=== PATIENT | male | born 2000 | race Two or more races ===

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

== ENCOUNTER 2022-05-27 17:42 | Emergency (ER) | payer OTHER ==
[~2022-05-27] VITALS: Ht 152.4 cm; Wt 72.6 kg
[~2022-05-27 17:42] MED LIST changes: +PROAIR RESPICL90 MCG; +ROBITUSSIN30 MG/5 ML
== END 2022-05-27 20:54 | disposition home or self-care (01) ==
LOC: EMR PED 17:42
DX: S00.83XA Contusion of other part of head, initial encounter (principal); W50.0XXA Accidental hit or strike by another person, initial encounter; Y92.838 Other recreation area as the place of occurrence of the external cause; F84.5 Asperger's syndrome; Y93.67 Activity, basketball

== ENCOUNTER → 2022-08-20 | Emergency (ER) | payer OTHER ==
[~2022-08-20] VITALS: Ht 180.3 cm; Wt 74.4 kg
== END | disposition left against medical advice (07) ==
LOC: ER → EMR PED 23:49
DX: Z53.21 Procedure and treatment not carried out due to patient leaving prior to being seen by health care provider (principal)

== ENCOUNTER 2023-12-06 16:29 | Emergency (ER) | payer OTHER ==
[~2023-12-06] VITALS: Ht 180.3 cm; Wt 74.8 kg
[2023-12-06] MEDS ORDERED: DEXAMETHASONE SODIUM PHOSPHATE 4 MG/ML VIAL IM ONE (17:30)
[2023-12-06] MEDS ORDERED: AZITHROMYCIN 500 MG TABLET PO ONE ×2 (17:30→17:32)
[2023-12-06] MEDS ORDERED: GUAIFENESIN/DEXTROMETHORPHAN 10ML BLIST.PACK PO ONE ×2 (17:30→17:32)
[2023-12-06] MEDS ORDERED: DEXAMETHASONE SODIUM PHOSPHATE 4 MG/ML VIAL ONE (17:32)
[2023-12-06 17:52] LABS: HEMOGLOBIN 15.2 g/dL (13-16.00); MEAN CELL VOLUME 86.7 fL (80.0-100.00); MEAN CORPUSCULAR HEMOGLOBIN 29.9 pg (27.00-32.0); MEAN CORPUSCULAR HGB CONC 34.5 g/dl (32.0-36.0); PLATELET COUNT 244 K/uL (150-450); RED BLOOD COUNT 5.07 M/uL (4.00-6.00); RED CELL DISTRIBUTION WIDTH 13.5 % (11.5-14.5)
[2023-12-06] MEDS ORDERED: ZITHROMAX500 MG PO (18:33)
[2023-12-06] MEDS ORDERED: TUSNEL LIQUID178 ML PO (18:33)
[2023-12-06] MEDS ORDERED: ZYRTEC10 M3 PO (18:34)
== END 2023-12-06 18:36 | disposition home or self-care (01) ==
LOC: ER 16:31
PROVIDERS: General Practice
DX: R53.81 Other malaise (principal); J06.9 Acute upper respiratory infection, unspecified; Z20.822 Contact with and (suspected) exposure to COVID-19

== ENCOUNTER 2024-02-05 20:28 | Emergency (ER) | payer OTHER ==
[~2024-02-05] VITALS: Ht 152.4 cm; Wt 76.2 kg
[~2024-02-05 20:28] MED LIST changes: +TUSNEL LIQUID178 ML PO; +ZITHROMAX500 MG PO; +ZYRTEC10 M3 PO
[2024-02-06] MEDS ORDERED: ACETAMINOPHEN 500 MG GEL..CAP PO STA (00:55)
[2024-02-06] MEDS ORDERED: GUAIFENESIN 200 MG/10 ML BLIST.PACK PO STA (00:55)
[2024-02-06] MEDS ORDERED: DIPHENHYDRAMINE HCL 12.5 MG/5 ML BLIST.PACK PO STA (00:55)
[2024-02-06 01:14] LABS: HEMATOCRIT 45.2 % (39.0-48.0); HEMOGLOBIN 15.2 g/dL (13-16.00); MEAN CELL VOLUME 88.2 fL (80.0-100.00); MEAN CORPUSCULAR HEMOGLOBIN 29.6 pg (27.00-32.0); MEAN CORPUSCULAR HGB CONC 33.6 g/dl (32.0-36.0); PLATELET COUNT 279 K/uL (150-450); RED BLOOD COUNT 5.13 M/uL (4.00-6.00); RED CELL DISTRIBUTION WIDTH 13.1 % (11.5-14.5)
[2024-02-06] MEDS ORDERED: PHENAGIL TABLE1 EACH PO (04:48)
[2024-02-06] MEDS ORDERED: DOLOGESIC-DF 51 EACH PO (04:48)
[2024-02-06] MEDS ORDERED: ZYNCOF 20-400120 ML PO ×2 (04:49)
== END 2024-02-06 05:11 ==
LOC: ER 20:30
PROVIDERS: General Practice
DX: J06.9 Acute upper respiratory infection, unspecified (principal); Z20.822 Contact with and (suspected) exposure to COVID-19

== ENCOUNTER 2024-12-01 22:05 | Emergency (ER) | payer OTHER ==
[~2024-12-01] VITALS: Ht 177.8 cm; Wt 78.9 kg
[~2024-12-01 22:05] MED LIST changes: +DOLOGESIC-DF 51 EACH PO; +PHENAGIL TABLE1 EACH PO; +ZYNCOF 20-400120 ML PO
[2024-12-01] MEDS ORDERED: MONDOXYNE NL100 MG PO (22:29)
[2024-12-01] MEDS ORDERED: FAMOtidine 10 MG/ML (4ML VIAL) IV ONE (23:15)
[2024-12-01] MEDS ORDERED: METHYLPREDNISOLONE SOD SUCC 125 MG VIAL IV ONE (23:15)
== END 2024-12-02 00:40 | disposition home or self-care (01) ==
LOC: ER 22:10
DX: R21 Rash and other nonspecific skin eruption (principal); K12.30 Oral mucositis (ulcerative), unspecified; B96.0 Mycoplasma pneumoniae [M. pneumoniae] as the cause of diseases classified elsewhere; L29.9 Pruritus, unspecified
CPT/HCPCS: 96365; 99282; J3490